=== PATIENT | female | born 1985 | race Asian ===

== ENCOUNTER 2023-10-18 09:32 | Outpatient (AMB) | payer BC, SELFPAY ==
--- NOTE | 2023-10-18 10:46 | A.OFFVIS_ITS ---
Vital Signs 10/18/23 10:47 Height 5 ft 1 in Weight 193 lb 4 oz BMI 36.5 BP 122/78 Blood Pressure Location Rt brachial Position Sitting Respiration 16 Pulse 77 Pulse Source Pulse Oximeter Pulse Oximetry (%) 98 Oxygen Delivery Method Room Air Intake Visit Reasons: ENP-Possible migraine headaches-CONF Intake Note: Pt presents to office for new pt evaluation for migraines. Director Product Required: No Allergies No Known Allergies Allergy (Verified 10/18/23 10:47) Medication List - Last Reconciled 10/18/23 by LOVE Weinberg albuterol sulfate 90 mcg/actuation 2 puffs inhalation Q4H PRN cyclobenzaprine 5 mg PO BEDTIME PRN 30 days ergocalciferol (vitamin D2) 1,250 mcg PO QWEEK fluticasone propion-salmeterol 115-21 mcg/actuation 2 puffs inhalation DAILY gabapentin 100 - 300 mg (1 - 3 x 100 mg) PO BEDTIME 30 days magnesium oxide 400 mg PO BEDTIME 30 days naproxen 500 mg PO BID riboflavin (vitamin B2) 400 mg PO DAILY 30 days sumatriptan succinate 50 - 100 mg orally at onset of headache, may repeat in 2 hrs PRN; max 2 tabs per day or 4 tabs/week (may take with Naproxen or Ibuprofen) 30 days HPI Comments Details: Right-handed 38-yr-old female presents for new pt evaluation of headache disorder. Pt reports she started having headaches in 2016, but now has a new headache that has worsened in the last year. She has 2 headache subtypes- a holocranial pounding headache and a left temporal stabbing headache. She denies preceding infection, accidents, injury. PMH and ROS are notable for:? Musculoskeletal disorders or injury: cervical lordosis , Sharp neck pain radiating into left upper trap, LUE tingling. Had Rt CTR in 2018, Lt CTR 2020. Cramps: leg cramps History of concussion/head injury: as a kid, hit her head a few times. Mood d/o: Anxiety, Depression- not dx'd Respiratory d/o: Asthma CV disease: Has h/o bilateral laser vein tx- for leg cramps, leg heaviness, tingling. Endocrine or metabolic d/o: Thyroid nodule. GI d/o: Constipation at times [employer]: Menses is regular. Family planning: none Pertinent denials include: Clotting or hematology d/o, Metabolic d/o, History of seizure, syncope, or drop attacks Family history of migraine or other headache disorder Lifestyle considerations: Sleep routine: Usual bedtime: 8pm and wake-up time: 4am Sleep difficulties: Is a light sleeper. Endorses: Snoring, Excessive daytime sleepiness, Fatigue, Restless sleep, Leg Cramps- just recently. Dentist told her she has bruxism and her jaw pops- is using a mouth guard- started last year Caffeine use: 1 cup of coffee or monster sugar free a day- a few times a week. 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 Family planning: none Headache questionnaire:? Previous work-up: head CT- last yr- at [facility] [place]- states normal. Typical headache characteristics: Prodrome symptoms: None Aura: sees squiggles and blurry vision Pain intensity: mild Location, quality, characteristics: Stabbing left temporal pain. Associated symptoms: photophobia, some phonophobia, rare osmophobia, allodynia, not right in space dizziness, lightheadedness, fatigue, cognitive difficulties. Left eye redness, watering, warmth. Postdrome: none Triggers: Menstrual cycle- at onset of menses. Denies pain triggered by light mechanical stimuli. Time of day: No specific time of day Duration and Frequency: Last 25-30 minutes, can repeat in a day. Occurs 1-2 x's per week. How does headache impact your life? No impact- states is used to it. Typical headache characteristics: Prodrome symptoms: None Aura: Unsure Pain intensity: severe Location, quality, characteristics: Holocranial Associated symptoms: photophobia, phonophobia, fatigue, cognitive difficulties, activity intolerance, speech slurred, rare right cheek- numbness/feeling like ants are crawling, rare neck pain (neck pain and right cheek s/s do not occur together). Triggers: Is not aware of any triggers. Time of day: Mostly occurs in the middle of the night. Once when she got off from work. Duration and Frequency: Unsure, but less than 1 day. Has occurred 6-7 x's in the past year. How does headache impact your life? has to lay done. Current acute medication use/interventions: Uses Naproxen- but also for her body pains. Also uses tyleonol or Ibuprofen. These work sometimes. Current preventative medication use: None Non-pharmacological interventions: Rest and fluids. [facility] Surgical History (Updated 10/18/23 @ 10:51 by Maria M Farris CMA) History of carpal tunnel release Previous section Social History Patient Tobacco Use Status: Never used Tobacco Physical Exam Vital Signs: Last Vital Signs Pulse 77 10/18/23 10:47 Resp 16 10/18/23 10:47 BP 122/78 10/18/23 10:47 Pulse Ox 98 10/18/23 10:47 Oxygen Delivery Method Room Air 10/18/23 10:47 BMI result Body Mass Index 36.5 Const Orientation/consciousness: patient oriented x3 HEENT Other: No palpable scalp tenderness. Eyes Pupils: Equal, round and reactive pupils present Resp Effort & Inspection: normal respiratory effort and able to speak in complete sentences Neuro Other: Right lower lip- swelling- pt states has been present for yrs following ? spider bite. Mild right lower facial asymmetry- ? masseter hypertrophy. Bilateral TMJ crepitus, misalignment and audible click on jaw opening. Bilateral posterior cervical tightness. Cervical ROM: slightly limited Left Spurling: normal Right Spurling: elicits non-radiating discomfort. General: patient oriented x3 Cranial nerves: Yes Equal, round and reactive pupils present, Yes Normal accommodation reflex present, Yes Bilaterally intact EOM present, Yes Nystagmus not present, Yes Normal gag reflex present and Yes Ability to bilaterally elevate shoulders present Cognition (Neuro): normal cognition Gait exam (Neuro): Normal gait present Motor exam (neuro): 5/5 motor strength present throughout Deep tendon reflexes (DTR's): Right triceps reflex intensity grade: 2+, Left triceps reflex intensity grade: 2+, Rt Biceps (C5, C6): 2+, Left biceps reflex intensity grade: 2+, Right brachioradialis reflex intensity grade: 2+, Left brachioradialis reflex intensity grade: 2+, Right patellar reflex intensity grade: 2+ and Left patellar reflex intensity grade: 2+ Coordination: [id number] test normal, tandem gait normal and Romberg test negative Pupils: Normal pupillary reactivity/response: bilateral Psych Appearance: grossly normal Mental Status: mental status grossly normal Speech and movement: Normal speech and movement present Affect: normal affect Attitude: cooperative Thought process: Normal thought process present Assessment & Plan Assessment & Plan (1) Worsening headaches: Comment: DDX migraine w/ aura, migraine w/o aura, migraine phenotype d/t secondary etiolo gy- TMJ dysfunction, cervicalgia, impaired sleep quality, intracerebral inflammatory process. Code(s): R51.9 - Headache, unspecified Category: Medical (2) Stabbing headache: Code(s): G44.85 - Primary stabbing headache Category: Medical (3) Bruxism: Code(s): F45.8 - Other somatoform disorders Category: Medical (4) Cervicalgia: Code(s): M54.2 - Cervicalgia Category: Medical (5) Paresthesia of left upper extremity: Code(s): R20.2 - Paresthesia of skin Category: Medical (6) Snoring: Code(s): R06.83 - Snoring Category: Medical (7) Fatigue: Code(s): R53.83 - Other fatigue Category: Medical (8) Sleep difficulties: Code(s): G47.9 - Sleep disorder, unspecified Category: Medical Plan As pt has worsening holocranial headache a/w right facial parenthesis, speech changes, as well as left temporal stabbing headache and LUE paresthesias, Pt advised to undergo the following work-up to assess for secondary etiologies: Brain MRI w/wo HST- also to assess for sleep apnea. Will request recent labs and c-spine X-ray reports from PCP. Futire considerations- LUE EMG/NCS, c-spine MRI. For overall headache management: * Optimize good self-care, including but not limited to maintaining a healthy diet, adequate fluid intake, adequate sleep, and engaging in regular physical activity. * Track headaches * Wear mouth guard nightly * PT eval & tx- for headcahe, bruxism, cervicalgia. For acute headache treatment of both left religious stabbing and holocranial throbbing headaches: Discussed importance of taking acute medications at the first sign of headache, however stressed importance of avoiding acute medication overuse (especially with combined headache medications). Trial Sumatriptan 100mg tab, 1/2 - 1 tab (50-100mg) at onset of headache, may repeat in 2 hours. Max of 2 tabs (200mg) per 24 hours. May adjunct with OTC Tylenol 650mg q 4 hours, Ibuprofen 600mg q 6 hours, or Naproxen 440mg q 12 hrs prn. Potential adverse effects of triptans, including but not limited to nausea, fatigue, chest tightness/tingling (usually passes within a few minutes), medication overuse headaches. Previous acute migraine medication trials: OTC tylenol, ibuprofen, naproxen- not fully effective Acute migraine medication contraindications: None at this time For headache prevention treatment of both left religious stabbing and holocranial throbbing headaches: Preventative medications should be taken routinely as prescribed for best effect, it may take several weeks for full effect to take effect. Start Riboflavin 400mg qam Start Magnesium 400mg qhs Start Gabapentin 100-300mg qhs. Try reducing cyclobenzaprine dose to 5mg hqs- in hopes this reduces daytime sleepiness effect. Previous migraine prevention medication trials: None Migraine prevention medication contraindications: Beta-Blockers d/t asthma dx Future considerations- Celebrex trial. Pt seen in collaboration w/ Dr Cherie Hassan. F/u niharika review of above and pt to follow-up in clinic 4-6 months or sooner prn. Orders: Orders MR head/brain wo/w con Today G44.85 - Primary stabbing headache, R20.2 - Paresthesia of skin, R51.9 - Headache, unspecified RT home sleep study Today G47.9 - Sleep disorder, unspecified, R06.83 - Snoring, R53.83 - Other fatigue PT Evaluation and Treatment Today F45.8 - Other somatoform disorders, G44.85 - Primary stabbing headache, M54.2 - Cervicalgia, R20.2 - Paresthesia of skin, R51.9 - Headache, unspecified Medications: New riboflavin (vitamin B2) 400 mg PO DAILY 30 days 30 tabs 6RF sumatriptan succinate (0.5 - 1 x 100 mg) 50 - 100 mg orally at onset of headache, may repeat in 2 hrs PRN; max 2 tabs per day or 4 tabs/week (may take with Naproxen or Ibuprofen) 30 days 12 tabs 6RF migraine headache magnesium oxide may hold for loose stools 400 mg PO BEDTIME 30 days 30 tabs 6RF cyclobenzaprine 5 mg PO BEDTIME 30 days PRN 30 tabs 3RF muscle spasm gabapentin 100 - 300 mg (1 - 3 x 100 mg) PO BEDTIME 30 days 90 caps 3RF Coding Level of Care Code New Pt Level 4 (04276) Diagnoses Worsening headaches R51.9 Stabbing headache G44.85 Bruxism F45.8 Cervicalgia M54.2 Paresthesia of left upper extremity R20.2 Snoring R06.83 Fatigue R53.83 Sleep difficulties G47.9
[2023-10-18 10:47] VITALS: BP 122/78; PULSE 77; RESP 16; O2SAT 98; BMI 36.5
== END 2023-10-18 11:52 | disposition home or self-care (01) ==
PROVIDERS: Visit Provider Nurse Practitioner Family
DX: G44.85 Primary stabbing headache (principal); F45.8 Other somatoform disorders; M54.2 Cervicalgia; R06.83 Snoring; R20.2 Paresthesia of skin; R53.83 Other fatigue; G47.9 Sleep disorder, unspecified
CPT/HCPCS: 99204

== ENCOUNTER → 2023-10-18 09:32 | Outpatient (BNVA) | payer BC, SELFPAY | PROVIDERS: Visit Provider Nurse Practitioner Family ==

== ENCOUNTER → 2023-12-07 07:31 | Outpatient (REF) | payer BC, SELFPAY | LOC: HO.SL 07:31 | PROVIDERS: PCP Internal Medicine; Visit Provider Nurse Practitioner Family | DX: G47.9 Sleep disorder, unspecified (principal); R06.83 Snoring; R53.83 Other fatigue | CPT/HCPCS: 95806 ==

== ENCOUNTER → 2023-12-07 07:46 | Outpatient (BNV) | payer BC, SELFPAY | PROVIDERS: PCP Internal Medicine; Visit Provider Psychiatry & Neurology Neurology | DX: R06.83 Snoring (principal) | CPT/HCPCS: 95806 ==

== ENCOUNTER 2024-01-04 07:55 | Outpatient (REF) | payer BC, SELFPAY ==
--- NOTE | ~2024-01-04 | MR_ITS ---
EXAMINATION: MR BRAIN WITHOUT AND WITH CONTRAST CLINICAL INFORMATION: Headache COMPARISON: None TECHNIQUE: Multiplanar multisequence MR imaging of the brain was obtained without and following the administration of 8.5 mL Gadavist intravenous contrast. FINDINGS: There is no acute infarct on diffusion-weighted imaging. There is no intracranial hemorrhage on iron-sensitive imaging. No extra-axial collection or mass effect/herniation. Normal parenchymal signal characteristics. No hydrocephalus. The ventricles are normal in morphology and size. No abnormal parenchymal or extra-axial enhancement. The major flow voids at the skull base are preserved. The midline structures are normal. The cerebellar tonsils are normally positioned. The craniocervical junction is normal. Marrow signal is within normal limits. The visualized soft tissues are without significant abnormality. Mild anterior ethmoid sinus mucosal thickening. MR/MR head/brain wo/w con IMPRESSION: Unremarkable contrast enhanced MRI of the brain. Electronically signed by: Michael Bernal MD 01/18/2024 06:30 PM EDT
[2024-01-04] MEDS: gadobutroL 10 ML VIAL IVPUSH (08:39)
== END 2024-01-04 07:56 | disposition home or self-care (01) ==
LOC: HO.MRI 07:55
PROVIDERS: PCP Internal Medicine; Visit Provider Nurse Practitioner Family
DX: G44.85 Primary stabbing headache (principal); R20.2 Paresthesia of skin
CPT/HCPCS: 70553; A9585